=== PATIENT | male | born 1955 | race Caucasian/White ===

== ENCOUNTER 2018-04-15 12:08 | Outpatient (CLI) | payer MEDICARE ==
--- NOTE | 2018-04-15 14:02 | RAD ---
TWO VIEWS RIGHT HIP: HISTORY: Hip pain. FINDINGS: AP and frog leg views right hip are obtained. Two views right hip demonstrate no evidence of right hip fractures, subluxations, or bony lesions. IMPRESSION: Normal 2 views right hip. POS: [facility]
--- NOTE | 2018-04-15 14:03 | RAD ---
LEFT HIP TWO VIEWS: HISTORY: Pain. TECHNIQUE: AP and frogleg views of the left hip are obtained. FINDINGS: Two views of the left hip demonstrate no evidence of left hip fractures, subluxations, or bony lesion s. IMPRESSION: Normal two views left hip. POS: [facility]
--- NOTE | 2018-04-15 14:05 | RAD ---
PREOPERATIVE CHEST RADIOGRAPH: HISTORY: A 63-year-old male. Preoperative radiograph prior to surgical intervention. COMPARISON: 06/13/2013 TECHNIQUE: PA and lateral views of the chest are obtained. FINDINGS: Two views of the chest demonstrate interval placement of a new right shoulder arthroplasty. Again, l eft shoulder arthroplasty is seen. A dorsal column stimulator is in place. No evidence of acute intrathoracic abnormalities seen. No evidence of effusions, pneumonia, or pneum othorax seen. Calcification and ectasia of the aorta seen. IMPRESSION: Unremarkable two views chest with no evidence of acute intrathoracic abnormalities seen. POS: [facility]
== END 2018-04-15 12:09 | disposition home or self-care (01) ==
LOC: SCSRAD 12:08
PROVIDERS: ATTEND Family Medicine
DX: Z01.818 Encounter for other preprocedural examination (principal); M25.551 Pain in right hip; M25.552 Pain in left hip
CPT/HCPCS: 71046